=== PATIENT | female | born 1980 | race American Indian/Alaskan Native ===

== ENCOUNTER 2020-05-13 19:35 | Emergency (ER) | payer SELFPAY ==
--- NOTE | 2020-05-13 21:39 | Event Note ---
ED Screening Note Date of service: 05/13/20 Time: 21:39 ED Screening Note: 39-year-old female presents with shortness of breath after exposure to Covid states her brother had it. Patient states shortness of breath has been worsening x1 week. She states shortness of breath is worsened with lying down This initial assessment/diagnostic orders/clinical plan/treatment(s) is/are subject to change based on patients health status, clinical progression and re- assessment by fellow clinical providers in the ED. Further treatment and workup at subsequent clinical providers discretion. Patient/guardian urged not to elope from the ED as their condition may be serious if not clinically assessed and managed. Initial orders include: pui labs cxr
[2020-05-13 22:03] LABS: Basophils # (Auto) 0.1 K/mm3 (0.0-0.1); Basophils % (Auto) 0.7 % (0.0-1.8); Eosinophils # (Auto) 0.1 K/mm3 (0.0-0.4); Eosinophils % (Auto) 0.8 % (0.0-4.3); Hematocrit 24.9 % (30.3-42.9); Hemoglobin 7.9 gm/dl (10.1-14.3); Lymphocytes # (Auto) 1.3 K/mm3 (1.2-5.4); Lymphocytes % (Auto) 15.2 % (13.4-35.0); Mean Corpuscular HGB Conc 32 % (30-34); Monocytes # (Auto) 0.6 K/mm3 (0.0-0.8); Monocytes % (Auto) 6.6 % (0.0-7.3); Platelet Count 353 K/mm3 (140-440); Red Blood Count 3.58 M/mm3 (3.65-5.03)
[2020-05-13 22:04] LABS: Mean Corpuscular Volume 69 fl (79-97); Red Cell Distribution Width 23.3 % (13.2-15.2)
--- NOTE | 2020-05-13 22:33 | XRay Report ---
CHEST 2 VIEWS INDICATION / CLINICAL INFORMATION: sob. COMPARISON: 03/03/2008 FINDINGS: SUPPORT DEVICES: None. HEART / MEDIASTINUM: No significant abnormality. LUNGS / PLEURA: No significant pulmonary or pleural abnormality. No pneumothorax. ADDITIONAL FINDINGS: No significant additional findings. IMPRESSION: 1. No acute findings. Signer Name: Lior Beavers MD Signed: 05/13/2020 10:29 PM Workstation Name: [id number]
[2020-05-13 23:00] VITALS: BP 148/80
--- NOTE | 2020-05-13 23:04 | Emergency Department Report ---
ED General Adult HPI - General Chief complaint: Dyspnea/Respdistress Stated complaint: SOB Time Seen by Provider: 05/13/20 23:01 Source: patient Mode of arrival: Stretcher Limitations: No Limitations - History of Present Illness Initial comments: Patient is a 39-year-old F Stateless female with past medical history of hypertension diabetes who is complaining of 1 week of cough and congestion. Patient states there is some streaks of blood in her sputum currently. States she has a tight burning sensation in the center chest and along both sides of he r ribs. States cough worsens when she is lying flat. She has had exposure to COVID-19. She has minimal shortness of breath with exertion. She denies nausea vomiting diarrhea but has had fever. Severity scale (0 -10): 0 - Related Data Previous Rx's Medication Instructions Recorded Last Taken Type Ferrous Sulfate [Feosol 325 MG tab] 325 mg PO BID #60 tablet 03/21/14 Unknown Rx NIFEdipine XL [Procardia Xl] 30 mg PO QDAY #30 tablet 03/21/14 Unknown Rx Albuterol Mdi (or & Nicu Only) 2 puff IH QID PRN #1 inhalation 05/13/20 Unknown Rx [ProAir HFA Inhaler] Benzonatate [Tessalon Perles] 100 mg PO Q8HR #10 capsule 05/13/20 Unknown Rx HYDROcodone/APAP 5-325 [[place] 1 each PO Q6HR PRN #14 tablet 05/13/20 Unknown Rx 5/325] Ketorolac [Toradol] 10 mg PO Q6H PRN #12 tablet 05/13/20 Unknown Rx Allergies Allergy/AdvReac Type Severity Reaction Status Date / Time No Known Allergies Allergy Unverified 03/20/14 17:03 ED Review of Systems ROS: Stated complaint: SOB Other details as noted in HPI Comment: All other systems reviewed and negative ED Past Medical Hx - Past Medical History Previous Medical History?: Yes Hx Hypertension: Yes Hx Congestive Heart Failure: No Hx Diabetes: Yes Hx Asthma: No Hx COPD: No Additional medical history: gestational diabetes & anemia. Bronchitis - Surgical History Past Surgical History?: Yes Additional Surgical History: "cleft palate" - Social History Smoking Status: Never Smoker Substance Use Type: None - Medications Home Medications: Home Medications Medication Instructions Recorded Confirmed Last Taken Type Ferrous Sulfate [Feosol 325 MG tab] 325 mg PO BID #60 tablet 03/21/14 Unknown Rx NIFEdipine XL [Procardia Xl] 30 mg PO QDAY #30 tablet 03/21/14 Unknown Rx Albuterol Mdi (or & Nicu Only) 2 puff IH QID PRN #1 inhalation 05/13/20 Unknown Rx [ProAir HFA Inhaler] Benzonatate [Tessalon Perles] 100 mg PO Q8HR #10 capsule 05/13/20 Unknown Rx HYDROcodone/APAP 5-325 [[place] 1 each PO Q6HR PRN #14 tablet 05/13/20 Unknown Rx 5/325] Ketorolac [Toradol] 10 mg PO Q6H PRN #12 tablet 05/13/20 Unknown Rx ED Physical Exam - General Limitations: No Limitations General appearance: alert, in no apparent distress - Head Head exam: Present: atraumatic, normocephalic - Eye Eye exam: Present: normal appearance, PERRL, EOMI - ENT ENT exam: Present: mucous membranes moist - Neck Neck exam: Present: normal inspection - Respiratory Respiratory exam: Present: normal lung sounds bilaterally, chest wall tenderness. Absent: respiratory distress, wheezes, rales, rhonchi - Cardiovascular Cardiovascular Exam: Present: regular rate, normal rhythm, normal heart sounds. Absent: systolic murmur, diastolic murmur, rubs, gallop - GI/Abdominal GI/Abdominal exam: Present: soft, normal bowel sounds. Absent: distended, tenderness, guarding, rebound - Extremities Exam Extremities exam: Present: normal inspection - Back Exam Back exam: Present: normal inspection - Neurological Exam Neurological exam: Present: alert, oriented X3 - Psychiatric Psychiatric exam: Present: normal affect, normal mood - Skin Skin exam: Present: warm, dry, intact, normal color. Absent: rash ED Course Vital Signs 05/13/20 05/13/20 21:27 22:59 Temperature 97.5 F L 98.1 F Pulse Rate 110 H 110 H Respiratory 22 20 Rate Blood Pressure 128/89 Blood Pressure 148/80 [Right] O2 Sat by Pulse 98 100 Oximetry ED Medical Decision Making - Lab Data Result diagrams: 05/13/20 21:38 05/13/20 21:38 Lab Results 05/13/20 05/13/20 05/13/20 Range/Units 21:38 21:38 21:38 WBC (4.5-11.0) K/mm3 RBC (3.65-5.03) M/mm3 Hgb (10.1-14.3) gm/dl Hct (30.3-42.9) % MCV (79-97) fl MCH (28-32) pg MCHC (30-34) % RDW (13.2-15.2) % Plt Count (140-440) K/mm3 Lymph % (Auto) (13.4-35.0) % [place] % (Auto) (0.0-7.3) % Eos % (Auto) (0.0-4.3) % Baso % (Auto) (0.0-1.8) % Lymph # (Auto) (1.2-5.4) K/mm3 [place] # (Auto) (0.0-0.8) K/mm3 Eos # (Auto) (0.0-0.4) K/mm3 Baso # (Auto) (0.0-0.1) K/mm3 Seg Neutrophils % (40.0-70.0) % Seg Neutrophils # (1.8-7.7) K/mm3 D-Dimer 185.08 (0-234) ng/mlDDU Glucose 108 H (65-100) mg/dL Ferritin 12.5 (10.0-200.0) ng/mL Lactate Dehydrogenase 353 H (91-180) units/L Total Creatine Kinase (30-135) units/L Troponin T (0.00-0.029) ng/mL C-Reactive Protein 1.00 (0.00-1.30) mg/dL 05/13/20 05/13/20 Range/Units 21:38 21:43 WBC 8.7 (4.5-11.0) K/mm3 RBC 3.58 L (3.65-5.03) M/mm3 Hgb 7.9 L (10.1-14.3) gm/dl Hct 24.9 L (30.3-42.9) % MCV 69 L (79-97) fl MCH 22 L (28-32) pg MCHC 32 (30-34) % RDW 23.3 H (13.2-15.2) % Plt Count 353 (140-440) K/mm3 Lymph % (Auto) 15.2 (13.4-35.0) % [place] % (Auto) 6.6 (0.0-7.3) % Eos % (Auto) 0.8 (0.0-4.3) % Baso % (Auto) 0.7 (0.0-1.8) % Lymph # (Auto) 1.3 (1.2-5.4) K/mm3 [place] # (Auto) 0.6 (0.0-0.8) K/mm3 Eos # (Auto) 0.1 (0.0-0.4) K/mm3 Baso # (Auto) 0.1 (0.0-0.1) K/mm3 Seg Neutrophils % 76.7 H (40.0-70.0) % Seg Neutrophils # 6.7 (1.8-7.7) K/mm3 D-Dimer (0-234) ng/mlDDU Glucose (65-100) mg/dL Ferritin (10.0-200.0) ng/mL Lactate Dehydrogenase (91-180) units/L Total Creatine Kinase 311 H (30-135) units/L Troponin T < 0.010 (0.00-0.029) ng/mL C-Reactive Protein (0.00-1.30) mg/dL - Radiology Data [facility] [address] [place] [address] XRay Report Signed Patient: OMID PADILLA MR#: [id number] : 1980 Acct:[id number] Age/Sex: 39 / F ADM Date: 05/13/20 Loc: ED Attending Dr: Ordering Physician: ELIN FLOWERS Date of Service: 05/13/20 Procedure(s): XR chest routine 2V Accession Number(s): [id number] cc: ELIN FLOWERS Fluoro Time In Minutes: CHEST 2 VIEWS INDICATION / CLINICAL INFORMATION: sob. COMPARISON: 03/03/2008 FINDINGS: SUPPORT DEVICES: None. HEART / MEDIASTINUM: No significant abnormality. LUNGS / PLEURA: No significant pulmonary or pleural abnormality. No pneumothorax. ADDITIONAL FINDINGS: No significant additional findings. IMPRESSION: 1. No acute findings. Signer Name: Lior Beavers MD Signed: 05/13/2020 10:29 PM Workstation Name: [email or web address] [id number] - Medical Decision Making Patient with no elevation of her inflammatory markers for COVID-19. Patient likely does have COVID-19 however causing an acute bronchitis. Patient be started on medication for symptomatic relief. Blood glucose was within normal limits today and the patient will be given a shot of Decadron although will be a half dose. Patient sent home with medication for symptomatic relief. Critical care attestation.: If time is entered above; I have spent that time in minutes in the direct care of this critically ill patient, excluding procedure time. ED Disposition Clinical Impression: Acute bronchitis, Suspected COVID-19 virus infection, Costochondral chest pain Disposition: TO HOME OR SELFCARE Is pt being admited?: No Does the pt Need Aspirin: No Condition: Stable Instructions: Acute Bronchitis (ED), Chest Pain (ED), Chest Wall Pain, [id number], Acute Bronchitis, Adult, [id number], COVID-19, COVID-19: How to Protect Yourself and Others - [facility] Additional Instructions: Please obtain outpatient COVID-19 testing at a local testing site or urgent care Referrals: JOSE SHULTZ MD [Primary Care Provider] - 3-5 Days Time of Disposition: 23:38
[2020-05-13] MEDS ORDERED: dexAMETHasone 20 MG/5 ML VIAL IM ONE (23:11)
[2020-05-13] MEDS ORDERED: HYDROcodone/ACETAMINOPHEN 7.5-325MG TAB PO ONE (23:11)
== END 2020-05-13 23:49 | disposition home or self-care (01) ==
LOC: ED 19:35
DX: J20.9 Acute bronchitis, unspecified (principal); M94.0 Chondrocostal junction syndrome [Tietze]; I10 Essential (primary) hypertension; E11.9 Type 2 diabetes mellitus without complications; Z20.828 Contact with and (suspected) exposure to other viral communicable diseases; Z79.899 Other long term (current) drug therapy
CPT/HCPCS: 36415; 71046; 82550; 82728; 82947; 83615; 84145; 84484; 85025; 85379; 86140; 96372; 99284; J1100

== ENCOUNTER 2020-06-06 01:22 | Emergency (ER) | payer SELFPAY ==
--- NOTE | 2020-06-06 03:40 | XRay Report ---
XR chest routine 2V INDICATION / CLINICAL INFORMATION: cough. COMPARISON: 05/13/2020 FINDINGS: SUPPORT DEVICES: None. HEART /PULMONARY VASCULATURE: No significant abnormality. LUNGS / PLEURA: No significant pulmonary or pleural abnormality. No pneumothorax. ADDITIONAL FINDINGS: No significant additional findings. IMPRESSION: 1. No acute findings. Signer Name: Rich Garcia MD Signed: 06/06/2020 3:35 AM Workstation Name: [id number]
--- NOTE | 2020-06-06 04:48 | Emergency Department Report ---
ED General Adult HPI - General Chief complaint: Upper Respiratory Infection Stated complaint: WEAKNESS/GENERAL WEAKNESS PUI?: Yes Time Seen by Provider: 06/06/20 04:30 Source: patient, EMS Mode of arrival: Stretcher Limitations: No Limitations - History of Present Illness Initial comments: 39-year-old F Ethiopian female reports being Covid positive on April 30, 2020 and subsequently has had a nagging nonproductive cough since that time. This cough caused him her to get kicked out of the [facility] so she has been wondering on the street since that time doing excessive amount of walking and now states is causing some pain. Ports no fever, chills, sweats reports no dysuria no nausea vomiting. -: Gradual Radiation: non-radiation Quality: aching, dull Consistency: constant Improves with: none Worsens with: none Associated Symptoms: cough, nausea/vomiting. denies: syncope, weakness Treatments Prior to Arrival: none - Related Data Previous Rx's Medication Instructions Recorded Last Taken Type Ferrous Sulfate [Feosol 325 MG tab] 325 mg PO BID #60 tablet 03/21/14 Unknown Rx NIFEdipine XL [Procardia Xl] 30 mg PO QDAY #30 tablet 03/21/14 Unknown Rx Albuterol Mdi (or & Nicu Only) 2 puff IH QID PRN #1 inhalation 05/13/20 Unknown Rx [ProAir HFA Inhaler] Benzonatate [Tessalon Perles] 100 mg PO Q8HR #10 capsule 05/13/20 Unknown Rx HYDROcodone/APAP 5-325 [[place] 1 each PO Q6HR PRN #14 tablet 05/13/20 Unknown Rx 5/325] Ketorolac [Toradol] 10 mg PO Q6H PRN #12 tablet 05/13/20 Unknown Rx Albuterol Mdi (or & Nicu Only) 1 puff IH QID #8.5 gram 06/06/20 Unknown Rx [ProAir HFA Inhaler] Benzonatate [Tessalon Perles] 100 mg PO Q8HR #20 capsule 06/06/20 Unknown Rx Allergies Allergy/AdvReac Type Severity Reaction Status Date / Time No Known Allergies Allergy Unverified 03/20/14 17:03 ED Review of Systems ROS: Stated complaint: WEAKNESS/GENERAL WEAKNESS Other details as noted in HPI Comment: All other systems reviewed and negative ED Past Medical Hx - Past Medical History Previous Medical History?: Yes Hx Hypertension: Yes Hx Congestive Heart Failure: No Hx Diabetes: Yes Hx Asthma: No Hx COPD: No Additional medical history: gestational diabetes & anemia - Surgical History Past Surgical History?: Yes Additional Surgical History: "cleft palate" - Social History Smoking Status: Never Smoker Substance Use Type: None - Medications Home Medications: Home Medications Medication Instructions Recorded Confirmed Last Taken Type Ferrous Sulfate [Feosol 325 MG tab] 325 mg PO BID #60 tablet 03/21/14 Unknown Rx NIFEdipine XL [Procardia Xl] 30 mg PO QDAY #30 tablet 03/21/14 Unknown Rx Albuterol Mdi (or & Nicu Only) 2 puff IH QID PRN #1 inhalation 05/13/20 Unknown Rx [ProAir HFA Inhaler] Benzonatate [Tessalon Perles] 100 mg PO Q8HR #10 capsule 05/13/20 Unknown Rx HYDROcodone/APAP 5-325 [[place] 1 each PO Q6HR PRN #14 tablet 05/13/20 Unknown Rx 5/325] Ketorolac [Toradol] 10 mg PO Q6H PRN #12 tablet 05/13/20 Unknown Rx Albuterol Mdi (or & Nicu Only) 1 puff IH QID #8.5 gram 06/06/20 Unknown Rx [ProAir HFA Inhaler] Benzonatate [Tessalon Perles] 100 mg PO Q8HR #20 capsule 06/06/20 Unknown Rx ED Physical Exam - General Limitations: No Limitations General appearance: alert, in no apparent distress - Head Head exam: Present: atraumatic, normocephalic - Eye Eye exam: Present: normal appearance, PERRL, EOMI Pupils: Present: normal accommodation - ENT ENT exam: Present: normal exam, mucous membranes moist - Neck Neck exam: Present: normal inspection - Respiratory Respiratory exam: Present: normal lung sounds bilaterally. Absent: respiratory distress, wheezes, rales, rhonchi, accessory muscle use, decreased breath sounds, prolonged expiratory - Cardiovascular Cardiovascular Exam: Present: regular rate, normal rhythm. Absent: systolic murmur, diastolic murmur, rubs, gallop - GI/Abdominal GI/Abdominal exam: Present: soft, normal bowel sounds - Extremities Exam Extremities exam: Present: normal inspection - Back Exam Back exam: Present: normal inspection. Absent: CVA tenderness (R), CVA tenderness (L) - Neurological Exam Neurological exam: Present: alert, oriented X3, CN II-XII intact - Psychiatric Psychiatric exam: Present: normal affect, normal mood - Skin Skin exam: Present: warm, dry, intact, normal color. Absent: rash ED Course Vital Signs 06/06/20 02:49 Temperature 98.3 F Pulse Rate 105 H Respiratory 18 Rate Blood Pressure 167/99 O2 Sat by Pulse 100 Oximetry Critical care attestation.: If time is entered above; I have spent that time in minutes in the direct care of this critically ill patient, excluding procedure time. ED Disposition Clinical Impression: Cough Disposition: DC-01 TO HOME OR SELFCARE Is pt being admited?: No Does the pt Need Aspirin: No Condition: Stable Instructions: Cool Mist Vaporizer, Cough, Adult, [id number], Cough, Adult Prescriptions: Albuterol Mdi (or & Nicu Only) [ProAir HFA Inhaler] 1 puff IH QID #8.5 gram Benzonatate [Tessalon Perles] 100 mg PO Q8HR #20 capsule Referrals: PRIMARY CARE, [Primary Care Provider] - 3-5 Days DUSTIN MUÑIZ MD [Staff Physician] - 3-5 Days
[2020-06-06 05:32] VITALS: BP 146/87
== END 2020-06-06 05:33 | disposition home or self-care (01) ==
LOC: ED 01:22
DX: R05 Cough (principal); I10 Essential (primary) hypertension; E11.9 Type 2 diabetes mellitus without complications; D64.9 Anemia, unspecified; Z79.899 Other long term (current) drug therapy; Z98.890 Other specified postprocedural states
CPT/HCPCS: 71046

== ENCOUNTER 2020-06-27 04:02 | Emergency (ER) | payer SELFPAY ==
[2020-06-27] MEDS ORDERED: IBUPROFEN 600 MG TAB PO ONE (05:49)
[2020-06-27] MEDS ORDERED: ACETAMINOPHEN 500 MG TAB PO ONE (05:49)
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
[2020-06-27 07:15] VITALS: BP 140/80
== END 2020-06-27 07:15 | disposition home or self-care (01) ==
LOC: ED 04:02
DX: S86.919A Strain of unspecified muscle(s) and tendon(s) at lower leg level, unspecified leg, initial encounter (principal); B02.21 Postherpetic geniculate ganglionitis; B02.8 Zoster with other complications; Z59.0 Homelessness; I10 Essential (primary) hypertension; E11.9 Type 2 diabetes mellitus without complications; Z79.899 Other long term (current) drug therapy; X58.XXXA Exposure to other specified factors, initial encounter; Y93.89 Activity, other specified; Y92.89 Other specified places as the place of occurrence of the external cause; Y99.8 Other external cause status
CPT/HCPCS: 99282

== ENCOUNTER 2021-01-18 12:07 | Emergency (ER) | payer SELFPAY ==
[2021-01-18] MEDS ORDERED: IBUPROFEN 800 MG TAB PO ONE (12:36)
--- NOTE | 2021-01-18 12:36 | Emergency Department Report ---
ED Fall HPI - General Chief Complaint: Dizziness Stated Complaint: DIZZY,DIABETIC Time Seen by Provider: 01/18/21 12:35 Source: patient Mode of arrival: Ambulatory Limitations: No Limitations - History of Present Illness Initial Comments: 40 yo AA comes to ER sp fall while at work. She was on her way to lunch, stepping onto an escalator when she got dizzy. Her shoe string got caught in escalator and she rolled her ankle. Co of lateral foot pain- sharp shooting pain. She has [employer] me in hand and is eating in triage. Ambulatory to ER. She checked her blood glucose this AM and it was ok. It was 104 on arrival to ER. On arrival to ER pt denies dizziness, chest pain or sob. She is non toxic and non ill appearing. MD Complaint: fall -: Sudden, hour(s) Fall From: standing Fall Witnessed: yes, by family, yes, by bystander Place Fall Occurred: work Loss of Consciousness: none Prolonged Down Time?: no Symptoms Prior to Fall: dizziness (was on her way to lunch- see is diabetic) Location: other Severity: mild Severity scale (0 -10): 3 Quality: aching Context: tripped/slipped Associated Symptoms: denies. denies: headache, neck pain, numbness, weakness, chest paint, shortness of breath, abdominal pain, hematuria, unable to walk, lightheaded, vertigo, confusion - Related Data Allergies Allergy/AdvReac Type Severity Reaction Status Date / Time No Known Allergies Allergy Verified 01/18/21 12:22 ED Review of Systems ROS: Stated complaint: DIZZY,DIABETIC Other details as noted in HPI Comment: All other systems reviewed and negative ED Past Medical Hx - Past Medical History Previous Medical History?: Yes Hx Hypertension: Yes Hx Congestive Heart Failure: No Hx Diabetes: Yes Hx Asthma: No Hx COPD: No Additional medical history: gestational diabetes & anemia - Surgical History Past Surgical History?: Yes Additional Surgical History: "cleft palate" - Family History Family history: no significant - Social History Smoking Status: Never Smoker Substance Use Type: None ED Physical Exam - General Limitations: No Limitations General appearance: alert, in no apparent distress - Head Head exam: Present: atraumatic, normocephalic - Eye Eye exam: Present: normal appearance - ENT ENT exam: Present: mucous membranes moist - Neck Neck exam: Present: normal inspection - Respiratory Respiratory exam: Present: normal lung sounds bilaterally. Absent: respiratory distress - Cardiovascular Cardiovascular Exam: Present: regular rate, normal rhythm. Absent: systolic murmur, diastolic murmur, rubs, gallop - GI/Abdominal GI/Abdominal exam: Present: soft, normal bowel sounds - Extremities Exam Extremities exam: Present: normal inspection - Back Exam Back exam: Present: normal inspection - Neurological Exam Neurological exam: Present: alert, oriented X3 - Psychiatric Psychiatric exam: Present: normal affect, normal mood - Skin Skin exam: Present: warm, dry, intact, normal color. Absent: rash ED Course Vital Signs 01/18/21 12:19 Temperature 98.5 F Pulse Rate 98 H Respiratory 16 Rate Blood Pressure 135/98 [Right] O2 Sat by Pulse 99 Oximetry - Reevaluation(s) Reevaluation #1: 01/18/21 13:37 on home metoformin DM since 15 years old- has not needed insulin in years ED Medical Decision Making - Radiology Data Radiology results: report reviewed, image reviewed nap - Medical Decision Making bg 104 on arrival- pt eating cherri alexis Vital Signs 01/18/21 12:19 Temperature 98.5 F Pulse Rate 98 H Respiratory 16 Rate Blood Pressure 135/98 [Right] O2 Sat by Pulse 99 Oximetry medicated with motrin for pain xray noted neurovascular intact. Full ROM. dc home with dc plan of care including diet, activity, blood glucose monitoring and follow up. Pt verbalizes understanding of plan of care. On dc pt ambulatory, taking PO and in NAD - Differential Diagnosis ro fx Critical care attestation.: If time is entered above; I have spent that time in minutes in the direct care of this critically ill patient, excluding procedure time. ED Disposition Clinical Impression: Fall, History of diabetes mellitus, Ankle contusion Disposition: HOME / SELF CARE / HOMELESS Is pt being admited?: No Does the pt Need Aspirin: No Condition: Stable Instructions: Contusion, [id number] Additional Instructions: REST - ice- elevate foot motrin or tylenol for pain monitor your blood glucose xray normal today if pain persists follow up with pcp referral below Referrals: CHANTELL LUU MD [Staff Physician] - 3-5 Days Forms: Work/School Release Form(ED) Time of Disposition: 12:48
[2021-01-18 13:39] VITALS: BP 141/93
--- NOTE | 2021-01-18 15:35 | XRay Report ---
RIGHT FOOT 3 VIEWS INDICATION: pain sp fall. COMPARISON: No relevant prior imaging study available. FINDINGS: No acute, displaced fracture or dislocation is seen. No foreign bodies. IMPRESSION: 1. No acute findings. Signer Name: Jett Cotterll MD Signed: 01/18/2021 3:31 PM Workstation Name: [id number]
== END 2021-01-18 13:47 | disposition home or self-care (01) ==
LOC: ED 12:07
DX: S90.01XA Contusion of right ankle, initial encounter (principal); I10 Essential (primary) hypertension; E11.9 Type 2 diabetes mellitus without complications; Z98.890 Other specified postprocedural states; W01.0XXA Fall on same level from slipping, tripping and stumbling without subsequent striking against object, initial encounter; Y93.89 Activity, other specified; Y92.89 Other specified places as the place of occurrence of the external cause; Y99.8 Other external cause status
CPT/HCPCS: 82962; 99284